=== PATIENT | female | born 1945 | race Caucasian/White ===

== ENCOUNTER → 2018-12-29 | Outpatient (CLI) | payer OTHER, MEDICARE ==
[~2018-12-29] MED LIST: ALPRAZOLAM 0.50.5 M1 PO; ANTI-INFLAMATORY; ASPIRIN325 PO; AUGMENTIN 875875 MG PO; BP MED; COLACE100 MG PO; COZAAR100 MG PO; CYCLOBENZAPRINE10 MG PO; CYMBALTA; CYMBALTA60 MG PO; DIFLUCAN200 MG PO; GLYCOLAX POWDER17 G1 PO; GRALISE600 MG PO; HYDROCODONE-AP1 EAC6 PO; HYDROCODONE-APA1 TA1 PO; LOSARTAN-HCTZ1 EAC1 PO; LOSARTAN-HCTZ1 EAC3 PO; LYRICA 50 MG50 MG PO; MEDI-LAXX TABL1 EACH PO; MIRALAX17 G1 PO; MIRALAX255 GM PO; MOBIC15 MG PO; MORPHINE S10 MG/5 M2 PO; MULTICHEW PO; MULTIVITAM9 MG/15 M1 PO; MULTIVITAMINS PO; NAPROSYN500 MG PO; NEURONTIN 300300 M1 PO; NORVASC2.5 MG PO; OMEPRAZOLE 20 M20 M1 PO; ONDANSETRON HCL4 M2 PO; OXYBUTYNIN 5 MG5 M2 PO; OXYCODONE HCL 55 MG PO; PAXIL 20 MG TAB20 MG PO; PRILOSEC 10MG C10 MG PO; PRILOSEC 20 MG20 MG PO; PROTONIX40 M2 PO; PROZAC 10 MG CA10 MG PO; PROZAC20 MG PO; PROZAC40 MG PO; ROXANOL 20 M20 MG/ML PO; TRAMADOL 50 MG50 MG PO; VITAMIN B12-FO1 EAC1 PO; VITAMIN D2000 UNI1 PO; VOLTAREN GEL 1100 G1 TOP; VOLTAREN GEL 1100 G2 TOP; XANAX 0.5 MG0.5 M1 PO; XARELTO10 MG PO
== END ==
LOC: M.ULTRA 13:03
DX: M71.22 Synovial cyst of popliteal space [Baker], left knee (principal)